=== PATIENT | male | born 1955 | race Caucasian/White ===

== ENCOUNTER 2018-09-05 23:46 | Observation (INO) | payer BC ==
[~2018-09-05] VITALS: Ht 182.9 cm; Wt 60.3 kg
[~2018-09-05 23:46] MED LIST: ASPIRIN 81M81 MG/TA2 PO; CIALIS2.5 MG PO; NORCO 325 MG-51 TAB PO; VALIUM 5MG T5 MG/TAB PO
[2018-09-06 00:04] LABS: BASO # 0.1 (0.0-0.2); BASO % 0.3 % (0.0-2.0); EOS # 0.3 (0.0-0.7); EOS % 1.6 % (0-4.0); GRAN # 11.6 (1.4-6.5); HEMATOCRIT 39.8 % (42.0-52.0); HEMOGLOBIN 13.8 g/dl (13.5-18.0); LYMPH # 2.7 (1.2-3.4); LYMPH % 16.8 % (20.0-51.0); MEAN CELL VOLUME 99 fl (80.0-100.0); MEAN CORPUSCULAR HEMOGLOBIN 34 pg (27.0-31.0); MEAN CORPUSCULAR HGB CONC 35 g/dl (33.0-37.0); MEAN PLATELET VOLUME 8.9 fl (7.4-10.4); MONO # 1.3 (0.1-0.6); PLATELET COUNT 281 K/mm3 (130-400); RED BLOOD COUNT 4.03 M/mm3 (4.20-5.60); REDCELL DISTRIBUTION WIDTH-CV 12.1 % (11.5-14.5)
[2018-09-06 00:34] LABS: ALANINE AMINOTRANSFERASE 30 U/L (21-72); ALBUMIN 4.5 gm/dL (3.5-5.0); ALKALINE PHOSPHATASE 72 U/L (50-136); ANION GAP 8 mmol/L (7-16); AST,SGOT 27 U/L (15-37); BILIRUBIN,TOTAL 0.5 mg/dL (0.0-1.0); BLOOD UREA NITROGEN 12 mg/dL (9-20); CALCIUM 9.4 mg/dL (8.4-10.2); CARBON DIOXIDE 29 mmol/L (22-30); CHLORIDE 102 mmol/L (98-107); CREATININE, serum 0.89 mg/dL (0.66-1.25); GLUCOSE 105 mg/dL (74-106); POTASSIUM 4.6 mmol/L (3.4-5.0); SODIUM 138 mmol/L (137-145); TOTAL PROTEIN 8.2 gm/dL (6.4-8.2)
[2018-09-06 00:46] LABS: TROPONIN-I < 0.012 ng/mL (0.000-0.034)
[2018-09-06 02:55] VITALS: BP 121/66; PULSE 111; TEMP 99.7
[2018-09-06 07:54] VITALS: BP 98/58; PULSE 77; TEMP 98.1
[2018-09-06] MEDS ORDERED: XARELTO15 MG PO (10:35)
[2018-09-06 11:38] VITALS: BP 111/53; PULSE 77; TEMP 98.2
[2018-09-06 15:39] VITALS: BP 116/54; PULSE 77; TEMP 98.4
[2018-09-06] MEDS ORDERED: MEDROL 4MG DOSPA4 MG PO (16:51)
[2018-09-06] MEDS ORDERED: COMBIRESP IH (16:52)
[2018-09-06] MEDS ORDERED: DOXYCYCLINE HY100 MG PO (16:56)
== END 2018-09-06 18:12 | disposition home or self-care (01) ==
LOC: COL.ER 23:46 → MEDICAL 09-06 02:06
PROVIDERS: Emergency Medicine
DX: I26.99 Other pulmonary embolism without acute cor pulmonale (principal); J44.1 Chronic obstructive pulmonary disease with (acute) exacerbation; D72.829 Elevated white blood cell count, unspecified; R06.89 Other abnormalities of breathing; F17.210 Nicotine dependence, cigarettes, uncomplicated; Z88.0 Allergy status to penicillin; Z79.01 Long term (current) use of anticoagulants; Z79.82 Long term (current) use of aspirin; Z82.49 Family history of ischemic heart disease and other diseases of the circulatory system; Z83.3 Family history of diabetes mellitus
CPT/HCPCS: 99222-AI; G0378; J1650; J2405; J2930; J7030; J7512; Q9967

== ENCOUNTER 2019-10-25 15:21 | Emergency (ER) | payer BC ==
[~2019-10-25] VITALS: Ht 182.9 cm; Wt 63.6 kg
[~2019-10-25 15:21] MED LIST changes: +COMBIRESP IH; +DOXYCYCLINE HY100 MG PO; +MEDROL 4MG DOSPA4 MG PO; +XARELTO15 MG PO
[2019-10-25 15:25] VITALS: TEMP 97.9
[2019-10-25 16:11] LABS: BASO % 0.3 % (0.0-2.0); EOS # 0.2 (0.0-0.7); EOS % 2.6 % (0-4.0); GRAN # 3.9 (1.4-6.5); GRAN % 43.9 % (42.2-75.2); HEMATOCRIT 38.6 % (42.0-52.0); LYMPH # 3.9 (1.2-3.4); LYMPH % 44.3 % (20.0-51.0); MEAN CELL VOLUME 100 fl (80.0-100.0); MEAN CORPUSCULAR HEMOGLOBIN 34 pg (27.0-31.0); MEAN CORPUSCULAR HGB CONC 34 g/dl (33.0-37.0); MONO # 0.8 (0.1-0.6); MONO % 8.8 % (1.7-9.3); PLATELET COUNT 261 K/mm3 (130-400); RED BLOOD COUNT 3.88 M/mm3 (4.20-5.60); REDCELL DISTRIBUTION WIDTH-CV 12.5 % (11.5-14.5)
[2019-10-25 16:13] LABS: ALBUMIN 4.5 gm/dL (3.5-5.0); BILIRUBIN,TOTAL 0.4 mg/dL (0.0-1.0); CALCIUM 9.2 mg/dL (8.4-10.2); CREATININE, serum 0.9 (0.66-1.25); POTASSIUM 3.6 mmol/L (3.4-5.0); TOTAL PROTEIN 7.7 gm/dL (6.4-8.2)
[2019-10-25 16:15] LABS: PROTHROMBIN TIME 11.8 SECONDS (9.7-12.8)
[2019-10-25] MEDS ORDERED: NORCO 325 MG-51 TAB PO (17:20)
[2019-10-25] MEDS ORDERED: ZOFRAN 4MG T4 MG/TAB PO (17:20)
[2019-10-25 17:31] VITALS: BP 130/84; PULSE 77
== END 2019-10-25 17:35 | disposition home or self-care (01) ==
LOC: COL.ER 15:21
PROVIDERS: Emergency Medicine
DX: K40.90 Unilateral inguinal hernia, without obstruction or gangrene, not specified as recurrent (principal); N40.0 Benign prostatic hyperplasia without lower urinary tract symptoms; F17.210 Nicotine dependence, cigarettes, uncomplicated; Z79.82 Long term (current) use of aspirin; Z88.0 Allergy status to penicillin
CPT/HCPCS: J1885; J2270; J2405; J3010; J7030; Q9967

== ENCOUNTER 2019-10-28 13:24 | Day surgery (SDC) | payer BC ==
[~2019-10-28] VITALS: Ht 182.9 cm; Wt 61.4 kg
[~2019-10-28 13:24] MED LIST changes: +ZOFRAN 4MG T4 MG/TAB PO
[2019-10-28] MEDS ORDERED: VITAMIN D32000 I1 PO (13:55)
[2019-10-28] MEDS ORDERED: MULTIPLE VITAMI1 CAP PO (13:56)
[2019-10-28 13:57] VITALS: BP 149/82; PULSE 88; TEMP 98
[2019-10-28 17:05] VITALS: BP 125/63; PULSE 58; TEMP 97.5
--- NOTE | 2019-10-28 17:05 | NUR ---
Patient is brought back from PACU to [facility] via cart. Alert and oriented. States is having pain but unable to give score from 1-10. Placed on monitors, vital signs stable. IV to right forearm infusing without difficulty. Requesting ice chips at this time. Patients family at bedside. Call fitzgerald within reach, will continue to monitor.
[2019-10-28 17:15] VITALS: BP 106/73; PULSE 62
--- NOTE | 2019-10-28 17:15 | NUR ---
Patients family states hes feeling slightly nauseous. No wretching or vommiting noted. Moaning in pain, unable to give souce or pain scale. If asked if he wants pain medication, direct answer has not beed given. Patient appears to have some anxiety at this time. Vital signs stable, will continue to monitor.
[2019-10-28 17:30] VITALS: BP 124/61; PULSE 48
--- NOTE | 2019-10-28 17:30 | NUR ---
Patient intermittently groans in pain, states he does not want pain medication at this time. HR low at 48. Crackers and water at bedside for when patient is ready to eat a little. Will continue to monitor.
[2019-10-28 17:45] VITALS: BP 136/57; PULSE 55
--- NOTE | 2019-10-28 17:54 | NUR ---
Patient attempted to eat gogo cracker. Episode of emesis following ingestion noted. Zofran given per orders. Requesting jello at this time. Will monitor.
--- NOTE | 2019-10-28 18:05 | NUR ---
Patient tolerating drink and jello without difficulty. Requesting Ibuprofen at this time. Vital signs stable. Will continue to monitor.
[2019-10-28 18:15] VITALS: BP 102/50; PULSE 65
--- NOTE | 2019-10-28 18:15 | NUR ---
Patient states still has pain to right groin, states does not want anything more for medication at this time. Ambulated to bathroom with one assist, able to void. IV removed, patient to get dressed at this time.
--- NOTE | 2019-10-28 18:30 | NUR ---
Discharge instructions reviewed with patient and family. Verbalized understanding. Made pt aware that MD would like to see him in office in 2 weeks. Office is currently closed. Pt will call in AM to schedule appointment. Incisions to lower abdomen continue to be clean dry and intact.
--- NOTE | 2019-10-28 18:40 | NUR ---
Patient brought down to lobby via wheel chair. Transfered to [email or web address] car. will drive pt home.
== END 2019-10-28 18:40 | disposition home or self-care (01) ==
LOC: SDCO 13:24
DX: K41.90 Unilateral femoral hernia, without obstruction or gangrene, not specified as recurrent (principal); D64.9 Anemia, unspecified; F17.210 Nicotine dependence, cigarettes, uncomplicated; Z80.3 Family history of malignant neoplasm of breast; Z79.82 Long term (current) use of aspirin; Z82.49 Family history of ischemic heart disease and other diseases of the circulatory system; Z88.0 Allergy status to penicillin; Z88.5 Allergy status to narcotic agent
CPT/HCPCS: C1781; J0690; J2405; J2704; J2710; J3010; J7120

== ENCOUNTER → 2020-10-28 | Outpatient (CLI) | payer BC ==
[~2020-10-28] VITALS: Ht 182.9 cm; Wt 63.1 kg
[~2020-10-28] MED LIST changes: +B-121000 MCG PO; +FLOMAX 0.40.4 MG/CAP PO; +FOLIC ACID800 MCG PO; +MASON NATURAL2000 IU PO; +MULTIPLE VITAMI1 CAP PO; +ONE-A-DAY ESSE1 EACH PO; +VITAMIN D32000 I1 PO
[2020-10-28 11:56] VITALS: BP 170/95; PULSE 106
[2020-10-28 13:10] VITALS: BP 164/86; PULSE 88
== END ==
LOC: COL.RAD 11:33
DX: M25.552 Pain in left hip (principal); M54.5 Low back pain
CPT/HCPCS: J3301

== ENCOUNTER 2021-05-29 07:50 | Emergency (ER) | payer BC ==
[~2021-05-29] VITALS: Ht 180.3 cm; Wt 65.9 kg
[2021-05-29 08:14] VITALS: TEMP 98.3
[2021-05-29] MEDS ORDERED: VALIUM 5MG T5 MG/TAB PO (08:38)
[2021-05-29 08:59] VITALS: BP 151/87; PULSE 95
== END 2021-05-29 09:03 | disposition home or self-care (01) ==
LOC: COL.ER 07:50
DX: M54.5 Low back pain (principal); F17.210 Nicotine dependence, cigarettes, uncomplicated
CPT/HCPCS: J1885; J3360

== ENCOUNTER 2024-02-03 14:14 | Emergency (ER) | payer MEDICARE, OTHER ==
[~2024-02-03] VITALS: Ht 180.3 cm; Wt 59.1 kg
[2024-02-03 14:23] VITALS: BP 163/85; TEMP 97.6
[2024-02-03 15:55] VITALS: PULSE 76
== END 2024-02-03 15:55 | disposition home or self-care (01) ==
LOC: COL.ER 14:14
DX: S61.211A Laceration without foreign body of left index finger without damage to nail, initial encounter (principal); Z23 Encounter for immunization; W27.8XXA Contact with other nonpowered hand tool, initial encounter

== ENCOUNTER 2024-05-09 11:56 | Emergency (ER) | payer MEDICARE, OTHER ==
[~2024-05-09] VITALS: Ht 177.8 cm; Wt 75.0 kg
[2024-05-09 12:06] VITALS: BP 151/91; TEMP 98.3
[2024-05-09] MEDS ORDERED: PREDNISONE50 MG PO (12:53)
[2024-05-09 13:00] VITALS: PULSE 81
== END 2024-05-09 13:00 | disposition home or self-care (01) ==
LOC: COL.ER 11:56
DX: T63.461A Toxic effect of venom of wasps, accidental (unintentional), initial encounter (principal); F17.210 Nicotine dependence, cigarettes, uncomplicated